=== PATIENT | male | born 1985 | race Caucasian/White ===

== ENCOUNTER 2024-06-09 05:31 | Emergency (ER) | payer OTHER ==
[~2024-06-09] VITALS: Ht 177.8 cm; Wt 68.2 kg
[2024-06-09 05:34] VITALS: BP 145/96; PULSE 82; RESP 20; TEMP 97.7; O2SAT 100
[2024-06-09] MEDS ORDERED: BUPR-559 PO (05:41)
[2024-06-09] MEDS ORDERED: BUPR1TAB46 SL (05:41)
[2024-06-09] MEDS: BUPRENORPHINE HCL/NALOXONE HCL 8-2 MG SUBLINGUAL TABLET SL ONE (07:52)
== END 2024-06-09 08:13 | disposition home or self-care (01) ==
LOC: EMS 05:34
DX: G89.29 Other chronic pain (principal); M54.50 Low back pain, unspecified; F32.A Depression, unspecified; Z76.0 Encounter for issue of repeat prescription; Z79.899 Other long term (current) drug therapy
CPT/HCPCS: 99283